=== PATIENT | male | born 1990 | race Two or more races ===

== ENCOUNTER 2023-09-17 12:35 | Emergency (ER) | payer MEDICAID ==
[~2023-09-17] VITALS: Ht 180.3 cm; Wt 84.6 kg
[2023-09-17 14:55] VITALS: BP 152/94; PULSE 79; RESP 16; TEMP 98.7; O2SAT 96
[2023-09-17] MEDS: cefTRIAXone SOD 1,000 MG VL IM ONE (15:22)
[2023-09-17] MEDS: TETANUS-DIPTH-ACEL PERTUSSIS 0.5ML SYR Tdap IM ONE (15:23)
[2023-09-17] MEDS: LIDOCAINE 1% HCL (LOCAL ANESTH.) INJ 20ML MDV IJ ONE (15:56)
[2023-09-17] MEDS ORDERED: AUG875T PO (16:14)
[2023-09-17] MEDS ORDERED: IBUP-1455 PO (16:14)
== END 2023-09-17 16:17 | disposition home or self-care (01) ==
LOC: ER 12:35
DX: S01.511A Laceration without foreign body of lip, initial encounter (principal); J45.909 Unspecified asthma, uncomplicated; W54.0XXA Bitten by dog, initial encounter; Y93.89 Activity, other specified; Y92.89 Other specified places as the place of occurrence of the external cause; Y99.8 Other external cause status
CPT/HCPCS: 40650; 90471; 90715; 96372; 99284; J0696; J2001